=== PATIENT | female | born 1940 | race Caucasian/White ===

== ENCOUNTER 2018-04-29 08:35 | Day surgery (SDC) | payer MEDICARE, OTHER ==
[~2018-04-29] VITALS: Ht 172.7 cm; Wt 58.1 kg
[~2018-04-29 08:35] MED LIST: CALCIUM500 MG PO; MACULAR VITAMI1 EACH PO; PRAVACHOL40 MG PO; SYNTHROID88 MCG PO; VITAMIN D400 UNI2 PO; VITAMIN D400 UNIT PO
[2018-04-29] MEDS ORDERED: LISINOPRIL10 MG PO (08:55)
--- NOTE | 2018-04-29 10:35 | NUR ---
04/29/18 Missy5 Sabine Boswell 1028-PATIENT ARRIVED TO PACU ON 3L NC O2 SAT 100% PATIENT AWAKE DENIES PAIN OR NAUSEA. ENCOURAGED TO PASS FLATUS. BP 87/25 PATIENT HELPED TO REPOSITION TO BACK. DENIES DIZZYNESS. IVF INFUSING.
--- NOTE | 2018-04-29 12:29 | OR ---
[facility] [address], [place] [address] Signed DATE OF OPERATION: 04/29/2018 SURGEON: Livan Wells MD PREOPERATIVE DIAGNOSES: 1. Personal history of colonic polyps. 2. Diverticulosis. 3. Internal hemorrhoids. POSTOPERATIVE DIAGNOSES: 1. Minimal sigmoid diverticulosis. 2. Minimal internal hemorrhoids with associated skin tags. 3. 4 mm polyps x3 in distal right colon. PROCEDURE: Colonoscopy with hot biopsy. ESTIMATED BLOOD LOSS: None. INDICATIONS: Penny is a 77-year-old female who has been coming every 5 years for colonoscopy due to her personal history of colonic polyps. She is also known to have diverticulosis with internal hemorrhoids. There is no family history of colon cancer or polyps. She remains in excellent physical shape as she exercises regularly in usp. In the office, I gave her a pamphlet on colonoscopy. We looked at that together along with the risks including, but not limited to gas bloating, crampy abdominal pain, bleeding, perforation requiring surgery and missed diagnosis. She also understands the need for IV conscious sedation. She had expressed understanding and wished to proceed. PROCEDURE NOTE: Penny was taken into our endoscopy suite and placed in the left lateral decubitus position. She was given 4 mg of Versed and 100 mcg of fentanyl to cover the case. A digital rectal exam was performed and this was unremarkable. The adult colonoscope was introduced and advanced all around into the cecum under direct visualization of camera without difficulty. Her prep was good. The scope was then slowly withdrawn. We took pictures throughout for photodocumentation. There were three 4 mm polyps in the distal right colon, which were removed easily with the help of hot biopsy forceps and placed that into our specimen container. We did a few diverticula in the sigmoid colon. They were minimal to moderate in size, minimal to moderate in number, and Electronically Signed By: LIVAN WELLS MD 04/29/18 1229 PATIENT NAME: PENNY CHIN OPERATIVE REPORT DATE OF : 44 REPORT #: [id number] PHYSICIAN: LIVAN WELLS MD PCP: DELMER CONSTANTINO MD REPORT IS CONFIDENTIAL AND NOT TO BE RELEASED WITHOUT AUTHORIZATION [facility] [address] [place] [id number] Signed scattered about. Once in the rectum, the scope had been retroflexed and we could see some tiny internal hemorrhoid tissue associated with some skin tags. After this, the gas was suctioned out. The colonoscope removed. Penny tolerated the procedure quite well. RECOMMENDATIONS: Penny will follow up my office in 7 to 14 days to review her results. It looks like she will stay on the 5-year rotation so long as her health holds up. Livan Wells MD ALB/NICOLL /[id number] cc: MD Livan Davison MD Copies: DELMER CONSTANTINO MD, ANDREW L MD ~ Electronically Signed By: LIVAN WELLS MD 04/29/18 1229 PATIENT NAME: GIUSEPPEPENNY SIN OPERATIVE REPORT DATE OF : 44 REPORT #: [id number] PHYSICIAN: LIVAN WELLS MD PCP: DELMER CONSTANTINO MD REPORT IS CONFIDENTIAL AND NOT TO BE RELEASED WITHOUT AUTHORIZATION
--- NOTE | 2018-04-29 12:54 | NUR ---
CONNECTED WITH PT IN PACU. SHE WAS SURPRISINGLY ALERT, AND FAIRLY ORIENTED. I WAS UNABLE TO SE PT BEFORE HAND. SHE WAS PLANNING ON DRIVING HERSELF HOME AND THEN TO A BALLGAME THIS AFTERNOON, ROSE CHUNG HEARD PT, AND VERY KINDLY AND PROFESSIONALLY INSTRUCTED PT THAT SHE SHOULD NOT DRIVE TODAY. PT UNDERSTOOD, AND ALLOWED ME TO ASSIST HER IN ARRANGING TRANSPORTATION HM. EXTENDED A BLESSING TO PT, AND PT AFFIRMED THAT SHE WOULD NOT DRIVE TODAY. I WILL FOLLOW NEEDED
== END 2018-04-29 11:25 | disposition home or self-care (01) ==
LOC: DS 08:35 → OPS 08:35 → DS 10:00 → OPS 11:25
PROVIDERS: Colon & Rectal Surgery
PROC: 0DBF8ZZ Excision of Right Large Intestine, Via Natural or Artificial Opening Endoscopic (ICD-10-PCS; principal; 2018-04-29 10:00)
DX: Z12.11 Encounter for screening for malignant neoplasm of colon (principal); D12.2 Benign neoplasm of ascending colon; K57.30 Diverticulosis of large intestine without perforation or abscess without bleeding; K64.8 Other hemorrhoids; L91.8 Other hypertrophic disorders of the skin; I12.9 Hypertensive chronic kidney disease with stage 1 through stage 4 chronic kidney disease, or unspecified chronic kidney disease; N18.3 Chronic kidney disease, stage 3 (moderate); E78.00 Pure hypercholesterolemia, unspecified; E03.9 Hypothyroidism, unspecified; Z86.010 Personal history of colon polyps; Z98.890 Other specified postprocedural states; Z87.891 Personal history of nicotine dependence; Z79.899 Other long term (current) drug therapy
CPT/HCPCS: 99153; G0500; J2250; J3010